=== PATIENT | male | born 1945 | race Caucasian/White ===

== ENCOUNTER 2018-04-18 09:38 | Inpatient (IN) | payer MEDICARE, MEDICAID ==
[2018-04-18 10:09] LABS: BASO # 0.1 10^3/uL (0.0-0.2); BASO % 0.6 % (0.0-1.0); EOS # 0.2 10^3/uL (0.0-0.50); EOS % 2.3 % (0.0-3.0); HEMATOCRIT 46.5 % (42.0-52.0); HEMOGLOBIN 15.6 g/dl (13.5-17.5); IMMATURE GRANULOCYTE % 0.3 % (0-3.0); LYMPH # 1.9 10^3/uL (1.5-4.5); LYMPH % 18.8 % (24.0-44.0); MEAN CORPUSCULAR HEMOGLOBIN 29.9 pg (27.0-33.0); MEAN CORPUSCULAR HGB CONC 33.5 g/dl (32.0-36.5); MEAN CORPUSCULAR VOLUME 89.1 fl (80.0-96.0); MONO % 10.1 % (0.0-5.0); NEUTROPHILS # 6.7 10^3/uL (1.8-7.7); NEUTROPHILS % 67.9 % (36.0-66.0); PLATELET COUNT, AUTOMATED 223 10^3/uL (150-450); RED BLOOD COUNT 5.22 10^6/uL (4.30-6.10); RED CELL DISTRIBUTION WIDTH 12.8 % (11.5-14.5); WHITE BLOOD COUNT 9.9 10^3/uL (4.0-10.0)
[2018-04-18 10:19] LABS: INR 0.97
[2018-04-18 10:37] LABS: ANION GAP 6 MEQ/L (8-16); BLOOD UREA NITROGEN 16 MG/DL (7-18); CALCIUM LEVEL 9.5 MG/DL (8.8-10.2); CARBON DIOXIDE LEVEL 28 MEQ/L (21-32); CHLORIDE LEVEL 104 MEQ/L (98-107); CPK CREATINE PHOSPHOKINASE 141 U/L (39-308); CREATININE FOR GFR 1.18 MG/DL (0.70-1.30); GLOMERULAR FILTRATION RATE > 60.0 (>42); GLUCOSE, FASTING 94 MG/DL (70-100); MB/CK RELATIVE INDEX 1.84 (< OR =4); POTASSIUM SERUM 3.5 MEQ/L (3.5-5.1); SODIUM LEVEL 138 MEQ/L (136-145); TROPONIN I < 0.02 NG/ML (< 0.10)
[2018-04-18 11:10] LABS: ALBUMIN 3.6 GM/DL (3.2-5.2); ALBUMIN/GLOBULIN RATIO 0.72 (1.00-1.93); ALKALINE PHOSPHATASE 95 U/L (45-117); ALT/SGPT 60 U/L (12-78); AST/SGOT 35 U/L (7-37); BILIRUBIN,DIRECT 0.1 MG/DL (0.0-0.2); BILIRUBIN,TOTAL 0.3 MG/DL (0.2-1.0); NT-PRO BNP 32 PG/ML (<125); TOTAL PROTEIN 8.6 GM/DL (6.4-8.2)
[2018-04-18 11:38] LABS: D-DIMER QUANT 2341.5 ng/ml (<500)
[2018-04-18] MEDS: NS 1,000 ML IV (12:00)
[2018-04-18] MEDS: IPRATROPIUM 0.5MG/ALBUTEROL 2.5MG INH SOL UD 3ML (DUONEB)(J7620) NEB (12:19)
[2018-04-18] MEDS: ALBUTEROL SULFATE 2.5 MG/0.5 ML INH NEB SOLN INH (12:20)
[2018-04-18 14:52] LABS: CPK CREATINE PHOSPHOKINASE 121 U/L (39-308); MB/CK RELATIVE INDEX 1.57 (< OR =4); TROPONIN I < 0.02 NG/ML (< 0.10)
[2018-04-18] MEDS ORDERED: ACETAMINOPHEN 650 MG SUPP PR (17:15)
[2018-04-18] MEDS: APIXABAN 5 MG TAB (ELIQUIS) PO (21:59)
[2018-04-18] MEDS: VITAMIN D 1,000 INTERNATIONAL UNITS TABLET PO (21:59)
[2018-04-18] MEDS: ASCORBIC ACID 500 MG TAB PO (21:59)
[2018-04-18] MEDS: LISINOPRIL 40 MG TAB PO (22:00)
[2018-04-18] MEDS: amLODIPine 5 MG TAB PO (22:00)
[2018-04-18] MEDS: ACETYLCYSTEINE 20% 4 ML VIAL (200MG/ML) PO (22:21)
[2018-04-18] MEDS: OYSTER SHELL CALCIUM 500 MG TAB PO (22:21)
[2018-04-19] MEDS ORDERED: SLF 3 ML SYR IV (03:15)
[2018-04-19] MEDS: SLF 3 ML SYR IV ×3 (06:00→20:57)
[2018-04-19 06:49] LABS: BASO # 0.1 10^3/uL (0.0-0.2); BASO % 0.4 % (0.0-1.0); EOS # 0.1 10^3/uL (0.0-0.50); EOS % 0.4 % (0.0-3.0); HEMATOCRIT 42.9 % (42.0-52.0); HEMOGLOBIN 14.4 g/dl (13.5-17.5); IMMATURE GRANULOCYTE % 0.4 % (0-3.0); LYMPH # 1.6 10^3/uL (1.5-4.5); LYMPH % 13.3 % (24.0-44.0); MEAN CORPUSCULAR HEMOGLOBIN 29.4 pg (27.0-33.0); MEAN CORPUSCULAR HGB CONC 33.6 g/dl (32.0-36.5); MEAN CORPUSCULAR VOLUME 87.7 fl (80.0-96.0); MONO # 1.5 10^3/uL (0.0-0.8); MONO % 12.5 % (0.0-5.0); PLATELET COUNT, AUTOMATED 220 10^3/uL (150-450); RED BLOOD COUNT 4.89 10^6/uL (4.30-6.10); RED CELL DISTRIBUTION WIDTH 13.1 % (11.5-14.5); WHITE BLOOD COUNT 12.3 10^3/uL (4.0-10.0)
[2018-04-19 07:04] LABS: ANION GAP 8 MEQ/L (8-16); BLOOD UREA NITROGEN 12 MG/DL (7-18); CALCIUM LEVEL 9.7 MG/DL (8.8-10.2); CARBON DIOXIDE LEVEL 26 MEQ/L (21-32); CHLORIDE LEVEL 104 MEQ/L (98-107); CREATININE FOR GFR 1.15 MG/DL (0.70-1.30); GLOMERULAR FILTRATION RATE > 60.0 (>42); GLUCOSE, FASTING 104 MG/DL (70-100); POTASSIUM SERUM 3.8 MEQ/L (3.5-5.1); SODIUM LEVEL 138 MEQ/L (136-145)
[2018-04-19] MEDS: APIXABAN 5 MG TAB (ELIQUIS) PO ×2 (08:07→20:57)
[2018-04-19] MEDS: VITAMIN D 1,000 INTERNATIONAL UNITS TABLET PO (20:53)
[2018-04-19] MEDS: ACETYLCYSTEINE 20% 4 ML VIAL (200MG/ML) PO (20:53)
[2018-04-19] MEDS: LISINOPRIL 40 MG TAB PO (20:54)
[2018-04-19] MEDS: amLODIPine 5 MG TAB PO (20:56)
[2018-04-19] MEDS: OYSTER SHELL CALCIUM 500 MG TAB PO (20:57)
[2018-04-19] MEDS: ASCORBIC ACID 500 MG TAB PO (20:57)
[2018-04-19] MEDS: LUMIGAN OU (21:00)
[2018-04-19] MEDS: SIMBRINZA OU (21:00)
[2018-04-20] MEDS: SLF 3 ML SYR IV ×3 (05:25→20:56)
[2018-04-20 06:31] LABS: BASO # 0.1 10^3/uL (0.0-0.2); BASO % 0.3 % (0.0-1.0); HEMOGLOBIN 14.2 g/dl (13.5-17.5); IMMATURE GRANULOCYTE % 0.5 % (0-3.0); LYMPH # 2.2 10^3/uL (1.5-4.5); LYMPH % 12.7 % (24.0-44.0); MEAN CORPUSCULAR HEMOGLOBIN 30.1 pg (27.0-33.0); MEAN CORPUSCULAR HGB CONC 33.8 g/dl (32.0-36.5); MEAN CORPUSCULAR VOLUME 89.2 fl (80.0-96.0); MONO % 14.4 % (0.0-5.0); NEUTROPHILS # 12.4 10^3/uL (1.8-7.7); NEUTROPHILS % 72.1 % (36.0-66.0); PLATELET COUNT, AUTOMATED 202 10^3/uL (150-450); RED BLOOD COUNT 4.71 10^6/uL (4.30-6.10); RED CELL DISTRIBUTION WIDTH 13.4 % (11.5-14.5); WHITE BLOOD COUNT 17.2 10^3/uL (4.0-10.0)
[2018-04-20 06:58] LABS: ANION GAP 8 MEQ/L (8-16); BLOOD UREA NITROGEN 25 MG/DL (7-18); CALCIUM LEVEL 9.4 MG/DL (8.8-10.2); CARBON DIOXIDE LEVEL 26 MEQ/L (21-32); CHLORIDE LEVEL 101 MEQ/L (98-107); CREATININE FOR GFR 1.92 MG/DL (0.70-1.30); GLOMERULAR FILTRATION RATE 36.9 (>42); GLUCOSE, FASTING 109 MG/DL (70-100); POTASSIUM SERUM 3.8 MEQ/L (3.5-5.1); SODIUM LEVEL 135 MEQ/L (136-145)
[2018-04-20 07:19] LABS: MONO # 2.5 10^3/uL (0.0-0.8); POSITIVE DIFF POS FLAG
[2018-04-20] MEDS: SIMBRINZA OU ×2 (09:22→20:56)
[2018-04-20] MEDS: APIXABAN 5 MG TAB (ELIQUIS) PO ×2 (09:22→20:35)
[2018-04-20] MEDS: ACETYLCYSTEINE 20% 4 ML VIAL (200MG/ML) PO (20:34)
[2018-04-20] MEDS: amLODIPine 10 MG TAB PO (20:34)
[2018-04-20] MEDS: OYSTER SHELL CALCIUM 500 MG TAB PO (20:35)
[2018-04-20] MEDS: VITAMIN D 1,000 INTERNATIONAL UNITS TABLET PO (20:35)
[2018-04-20] MEDS: ASCORBIC ACID 500 MG TAB PO (20:35)
[2018-04-20] MEDS: LUMIGAN OU (20:36)
[2018-04-21] MEDS: SLF 3 ML SYR IV ×3 (04:39→21:09)
[2018-04-21 05:39] LABS: BASO # 0.1 10^3/uL (0.0-0.2); BASO % 0.4 % (0.0-1.0); EOS % 0.1 % (0.0-3.0); HEMATOCRIT 41.2 % (42.0-52.0); HEMOGLOBIN 13.6 g/dl (13.5-17.5); IMMATURE GRANULOCYTE % 0.6 % (0-3.0); LYMPH # 2.5 10^3/uL (1.5-4.5); LYMPH % 19.4 % (24.0-44.0); MEAN CORPUSCULAR HEMOGLOBIN 29.8 pg (27.0-33.0); MEAN CORPUSCULAR VOLUME 90.4 fl (80.0-96.0); MONO # 1.6 10^3/uL (0.0-0.8); MONO % 12.4 % (0.0-5.0); NEUTROPHILS # 8.7 10^3/uL (1.8-7.7); NEUTROPHILS % 67.1 % (36.0-66.0); PLATELET COUNT, AUTOMATED 199 10^3/uL (150-450); RED BLOOD COUNT 4.56 10^6/uL (4.30-6.10); RED CELL DISTRIBUTION WIDTH 13.3 % (11.5-14.5); WHITE BLOOD COUNT 12.9 10^3/uL (4.0-10.0)
[2018-04-21 06:05] LABS: ANION GAP 7 MEQ/L (8-16); BLOOD UREA NITROGEN 45 MG/DL (7-18); CALCIUM LEVEL 9.5 MG/DL (8.8-10.2); CARBON DIOXIDE LEVEL 27 MEQ/L (21-32); CHLORIDE LEVEL 101 MEQ/L (98-107); CREATININE FOR GFR 2.32 MG/DL (0.70-1.30); GLOMERULAR FILTRATION RATE 29.7 (>42); GLUCOSE, FASTING 97 MG/DL (70-100); POTASSIUM SERUM 3.8 MEQ/L (3.5-5.1); SODIUM LEVEL 135 MEQ/L (136-145)
[2018-04-21] MEDS: NS 1,000 ML IV ×2 (09:21→18:59)
[2018-04-21] MEDS: SIMBRINZA OU ×2 (09:22→21:09)
[2018-04-21] MEDS: APIXABAN 5 MG TAB (ELIQUIS) PO ×2 (09:22→21:06)
[2018-04-21] MEDS: COLCHICINE 0.6 MG TAB PO (12:57)
[2018-04-21 14:15] LABS: ABG BASE EXCESS -0.8 (-2.0-2.0); ABG HCO3 23.1 MEQ/L (22.0-26.0); ABG O2 SATURATION 92.2 % (95.0-99.0); ABG PARTIAL PRESSURE CO2 35.9 mmHg (35.0-45.0); ABG PARTIAL PRESSURE O2 61.9 mmHg (75.0-100.0); ABG STANDARD HCO3 23.7 MEQ/L (22.0-26.0); ABG TOTAL CO2 24.2 MEQ/L (23.0-31.0); ABG pH (ARTERIAL) 7.426 UNITS (7.350-7.450)
[2018-04-21 14:17] LABS: HEMATOCRIT 39.6 % (42.0-52.0); HEMOGLOBIN 13.2 g/dl (13.5-17.5); MEAN CORPUSCULAR HEMOGLOBIN 30.1 pg (27.0-33.0); MEAN CORPUSCULAR HGB CONC 33.3 g/dl (32.0-36.5); MEAN CORPUSCULAR VOLUME 90.2 fl (80.0-96.0); PLATELET COUNT, AUTOMATED 186 10^3/uL (150-450); RED BLOOD COUNT 4.39 10^6/uL (4.30-6.10); RED CELL DISTRIBUTION WIDTH 13.2 % (11.5-14.5); WHITE BLOOD COUNT 9.7 10^3/uL (4.0-10.0)
[2018-04-21 14:51] LABS: ALBUMIN 2.7 GM/DL (3.2-5.2); ALBUMIN/GLOBULIN RATIO 0.66 (1.00-1.93); ALKALINE PHOSPHATASE 57 U/L (45-117); ALT/SGPT 31 U/L (12-78); ANION GAP 7 MEQ/L (8-16); AST/SGOT 29 U/L (7-37); BILIRUBIN,TOTAL 0.5 MG/DL (0.2-1.0); BLOOD UREA NITROGEN 46 MG/DL (7-18); CALCIUM LEVEL 8.6 MG/DL (8.8-10.2); CARBON DIOXIDE LEVEL 27 MEQ/L (21-32); CHLORIDE LEVEL 104 MEQ/L (98-107); CREATININE FOR GFR 2.17 MG/DL (0.70-1.30); GLOMERULAR FILTRATION RATE 32.1 (>42); GLUCOSE, FASTING 101 MG/DL (70-100); POTASSIUM SERUM 3.8 MEQ/L (3.5-5.1); SODIUM LEVEL 138 MEQ/L (136-145); TOTAL PROTEIN 6.8 GM/DL (6.4-8.2)
[2018-04-21 14:58] LABS: LACTIC ACID SEPSIS PROTOCOL 1.4 MMOL/L (0.4-2.0)
[2018-04-21 16:15] LABS: ANION GAP 7 MEQ/L (8-16); BLOOD UREA NITROGEN 45 MG/DL (7-18); CALCIUM LEVEL 8.8 MG/DL (8.8-10.2); CARBON DIOXIDE LEVEL 25 MEQ/L (21-32); CHLORIDE LEVEL 103 MEQ/L (98-107); CREATININE FOR GFR 1.97 MG/DL (0.70-1.30); GLOMERULAR FILTRATION RATE 35.9 (>42); GLUCOSE, FASTING 94 MG/DL (70-100); POTASSIUM SERUM 3.7 MEQ/L (3.5-5.1); SODIUM LEVEL 135 MEQ/L (136-145)
[2018-04-21 19:59] LABS: APPEARANCE, URINE CLEAR (CLEAR); BACTERIA, URINE AUTO NEGATIVE (NEGATIVE); BILIRUBIN, URINE AUTO NEGATIVE (NEGATIVE); BLOOD, URINE BLOOD NEGATIVE (NEGATIVE); COLOR, URINE YELLOW (YELLOW); GLUCOSE, URINE (UA) AUTO NEGATIVE (NEGATIVE); KETONE, URINE AUTO NEGATIVE (NEGATIVE); LEUKOCYTE ESTERASE, URINE AUTO NEGATIVE (NEGATIVE); MUCUS, URINE SMALL (NEGATIVE); NITRITE, URINE AUTO NEGATIVE (NEGATIVE); PROTEIN, URINE AUTO NEGATIVE (NEGATIVE); RBC, URINE AUTO 3 /HPF (0-3); SPECIFIC GRAVITY URINE AUTO 1.016 (1.002-1.035); SQUAMOUS EPITHELIAL CELL UR AU 0 /HPF (0-6); UROBILINOGEN, URINE AUTO 0.2 mg/dL (0.0-2.0); WBC, URINE AUTO 1 /HPF (0-3)
[2018-04-21 20:35] LABS: SODIUM,RANDOM URINE 19 MEQ/L
[2018-04-21] MEDS: ACETYLCYSTEINE 20% 4 ML VIAL (200MG/ML) PO (21:03)
[2018-04-21] MEDS: ASCORBIC ACID 500 MG TAB PO (21:05)
[2018-04-21] MEDS: OYSTER SHELL CALCIUM 500 MG TAB PO (21:05)
[2018-04-21] MEDS: VITAMIN D 1,000 INTERNATIONAL UNITS TABLET PO (21:05)
[2018-04-21] MEDS: TAMSULOSIN 0.4 MG CAP PO (21:06)
[2018-04-21] MEDS: amLODIPine 10 MG TAB PO (21:07)
[2018-04-21] MEDS: LUMIGAN OU (21:08)
[2018-04-22 04:54] LABS: BASO % 0.4 % (0.0-1.0); EOS # 0.1 10^3/uL (0.0-0.50); EOS % 1.3 % (0.0-3.0); HEMATOCRIT 41.4 % (42.0-52.0); HEMOGLOBIN 13.5 g/dl (13.5-17.5); IMMATURE GRANULOCYTE % 0.6 % (0-3.0); LYMPH # 2.2 10^3/uL (1.5-4.5); LYMPH % 24.9 % (24.0-44.0); MEAN CORPUSCULAR HEMOGLOBIN 29.6 pg (27.0-33.0); MEAN CORPUSCULAR HGB CONC 32.6 g/dl (32.0-36.5); MEAN CORPUSCULAR VOLUME 90.8 fl (80.0-96.0); MONO # 1.1 10^3/uL (0.0-0.8); MONO % 11.7 % (0.0-5.0); NEUTROPHILS # 5.5 10^3/uL (1.8-7.7); NEUTROPHILS % 61.1 % (36.0-66.0); PLATELET COUNT, AUTOMATED 213 10^3/uL (150-450); RED BLOOD COUNT 4.56 10^6/uL (4.30-6.10); RED CELL DISTRIBUTION WIDTH 13.2 % (11.5-14.5); WHITE BLOOD COUNT 8.9 10^3/uL (4.0-10.0)
[2018-04-22 05:17] LABS: ANION GAP 5 MEQ/L (8-16); BLOOD UREA NITROGEN 32 MG/DL (7-18); CALCIUM LEVEL 9.2 MG/DL (8.8-10.2); CARBON DIOXIDE LEVEL 27 MEQ/L (21-32); CHLORIDE LEVEL 108 MEQ/L (98-107); CREATININE FOR GFR 1.55 MG/DL (0.70-1.30); GLOMERULAR FILTRATION RATE 47.3 (>42); GLUCOSE, FASTING 99 MG/DL (70-100); POTASSIUM SERUM 3.8 MEQ/L (3.5-5.1); SODIUM LEVEL 140 MEQ/L (136-145)
[2018-04-22] MEDS: SLF 3 ML SYR IV ×3 (05:57→21:20)
[2018-04-22] MEDS: TAMSULOSIN 0.4 MG CAP PO (08:33)
[2018-04-22] MEDS: APIXABAN 5 MG TAB (ELIQUIS) PO ×2 (08:33→21:00)
[2018-04-22] MEDS: COLCHICINE 0.6 MG TAB PO (08:33)
[2018-04-22] MEDS: NS 1,000 ML IV ×2 (08:34→21:20)
[2018-04-22] MEDS: SIMBRINZA OU ×2 (11:16→21:07)
[2018-04-22] MEDS: LUMIGAN OU (20:58)
[2018-04-22] MEDS: ASCORBIC ACID 500 MG TAB PO (20:59)
[2018-04-22] MEDS: OYSTER SHELL CALCIUM 500 MG TAB PO (21:00)
[2018-04-22] MEDS: VITAMIN D 1,000 INTERNATIONAL UNITS TABLET PO (21:00)
[2018-04-22] MEDS: amLODIPine 10 MG TAB PO (21:01)
[2018-04-22] MEDS: ACETYLCYSTEINE 20% 4 ML VIAL (200MG/ML) PO (21:04)
[2018-04-23 05:07] LABS: BASO % 0.5 % (0.0-1.0); EOS # 0.1 10^3/uL (0.0-0.50); EOS % 1.7 % (0.0-3.0); HEMATOCRIT 38.4 % (42.0-52.0); HEMOGLOBIN 12.7 g/dl (13.5-17.5); IMMATURE GRANULOCYTE % 0.4 % (0-3.0); LYMPH # 1.7 10^3/uL (1.5-4.5); LYMPH % 22.9 % (24.0-44.0); MEAN CORPUSCULAR HEMOGLOBIN 29.8 pg (27.0-33.0); MEAN CORPUSCULAR HGB CONC 33.1 g/dl (32.0-36.5); MEAN CORPUSCULAR VOLUME 90.1 fl (80.0-96.0); MONO % 13.7 % (0.0-5.0); NEUTROPHILS # 4.6 10^3/uL (1.8-7.7); NEUTROPHILS % 60.8 % (36.0-66.0); PLATELET COUNT, AUTOMATED 215 10^3/uL (150-450); RED BLOOD COUNT 4.26 10^6/uL (4.30-6.10); RED CELL DISTRIBUTION WIDTH 13.1 % (11.5-14.5); WHITE BLOOD COUNT 7.5 10^3/uL (4.0-10.0)
[2018-04-23 05:32] LABS: ANION GAP 8 MEQ/L (8-16); BLOOD UREA NITROGEN 17 MG/DL (7-18); CALCIUM LEVEL 8.6 MG/DL (8.8-10.2); CARBON DIOXIDE LEVEL 25 MEQ/L (21-32); CHLORIDE LEVEL 108 MEQ/L (98-107); CREATININE FOR GFR 1.06 MG/DL (0.70-1.30); GLOMERULAR FILTRATION RATE > 60.0 (>42); GLUCOSE, FASTING 99 MG/DL (70-100); POTASSIUM SERUM 3.6 MEQ/L (3.5-5.1); SODIUM LEVEL 141 MEQ/L (136-145)
[2018-04-23] MEDS: SLF 3 ML SYR IV (05:37)
[2018-04-23] MEDS: TAMSULOSIN 0.4 MG CAP PO (09:21)
[2018-04-23] MEDS: APIXABAN 5 MG TAB (ELIQUIS) PO (09:21)
[2018-04-23] MEDS: SIMBRINZA OU (09:22)
[2018-04-23] MEDS ORDERED: PILL CRUSHER/CUTTER 1 EACH XX (09:30)
[2018-04-23] MEDS: COLCHICINE 0.6 MG TAB PO (11:14)
== END 2018-04-23 12:51 | disposition home or self-care (01) | DRG 176 ==
LOC: M ED 09:38 → M ED INP 18:52 → M PCU 21:29
DX: I26.99 Other pulmonary embolism without acute cor pulmonale (principal); N17.9 Acute kidney failure, unspecified; I30.9 Acute pericarditis, unspecified; J90 Pleural effusion, not elsewhere classified; J84.112 Idiopathic pulmonary fibrosis; I10 Essential (primary) hypertension; E66.9 Obesity, unspecified; R33.9 Retention of urine, unspecified; H40.9 Unspecified glaucoma; Z79.899 Other long term (current) drug therapy; Z91.041 Radiographic dye allergy status; Z86.718 Personal history of other venous thrombosis and embolism; Z68.33 Body mass index [BMI] 33.0-33.9, adult

== ENCOUNTER → 2018-07-12 | Outpatient (REF) | payer MEDICARE, MEDICAID ==
[~2018-07-12] MED LIST: AMLO10TA5 PO; AMLO5TAB6 PO; BIMA01SOL OU; CALC500T36 PO; COLC1TAB13 PO; ELIQ5TAB PO; FLOM0.4C39 PO; GLUCTAB6 PO; LISI40TA PO; NACCAP2 PO; SIMB1SUS OU; TUMS500C PO; VITA500T PO; VITAD1000T PO
[2018-07-12 17:21] LABS: FERRITIN 313 NG/ML (26-388); GAMMA GLUTAMYLTRANSPEPTIDASE 71 U/L (15-85)
== END ==
LOC: M LAB REF 16:33
PROVIDERS: ATTEND Family Medicine
DX: R74.8 Abnormal levels of other serum enzymes (principal); D64.9 Anemia, unspecified

== ENCOUNTER → 2018-09-13 | Outpatient (REF) | payer MEDICARE, MEDICAID ==
[2018-09-15 14:21] LABS: PSA % FREE 18.7 % (.); PSA FREE 0.97 ng/mL; PSA TOTAL 5.2 ng/mL (0.0-4.0)
== END ==
LOC: M LAB REF 16:39
PROVIDERS: ATTEND Family Medicine
DX: R97.20 Elevated prostate specific antigen [PSA] (principal)

== ENCOUNTER → 2019-01-03 | Outpatient (CLI) | payer MEDICARE, MEDICAID ==
[~2019-01-03] MED LIST changes: -CALC500T36 PO; +CALC500T61 PO; +NACCAP PO; -NACCAP2 PO
--- NOTE | 2019-01-06 00:11 | ECHO ---
DATE OF PROCEDURE: 01/03/2019 DATE OF : 1945 AGE: 73 REFERRING PROVIDER: Jeremy Laws MD PATIENT LOCATION: Outpatient REASON FOR THE ECHOCARDIOGRAM: Edema. 2D MEASUREMENTS: IVS: 1.2 cm LV: 4.0 cm LVPW: 1.3 cm LA: 4.3 cm Aorta: 3.5 cm IVC: 0.9 cm DOPPLER MEASUREMENTS: Peak velocity across the aortic valve: 1.3 m/s Peak velocity across the LVOT: 1.0 m/s Mitral E: 0.77, Mitral A: 0.91 with a ratio of 0.8 Maximum tricuspid valve velocity: 3.1 m/s 2D COMMENTS: 1. Normal left ventricular size, wall thickness, and normal global left ventricular systolic function. The estimated left ventricular systolic ejection fraction is 60-65% 2. Mildly enlarged left atrium. Normal right atrium and right ventricle. 3. The atrial septum appeared to be normal without evidence of defect or shunt. 4. Normal aortic root. 5. No pericardial effusion seen. 6. Mildly calcified aortic valve with normal leaflet excursion. Mildly calcified mitral annulus with normal anterior mitral valve leaflet motion. Normal tricuspid valve and pulmonic valve. The proximal pulmonary artery branches also appear to be normal. 7. The inferior vena cava was normal in size, central venous pressure is most likely normal. DOPPLER: It detects mild aortic regurgitation, mild mitral regurgitation, mild tricuspid regurgitation. The calculated pulmonary artery systolic pressure varies between 40 and 50 mmHg. Abnormal relaxation pattern was noted across the mitral valve leaflets as well as the mitral valve annulus consistent with features of grade 1 left ventricular diastolic dysfunction. IMPRESSION: 1. Normal global left ventricular systolic function. There are some features of left ventricular diastolic dysfunction manifested by abnormal relaxation. 2. Aortic valve sclerosis with mild aortic regurgitation but no aortic stenosis. 3. Mitral annulus calcification with mildly enlarged left atrium and mild mitral regurgitation. 4. Mild tricuspid regurgitation with probably moderate pulmonary hypertension.
== END ==
LOC: M CARPUL 07:13
PROVIDERS: ATTEND Internal Medicine Critical Care Medicine
DX: R60.0 Localized edema (principal); K80.20 Calculus of gallbladder without cholecystitis without obstruction; J84.112 Idiopathic pulmonary fibrosis

== ENCOUNTER → 2019-01-03 | Outpatient (CLI) | payer MEDICARE, MEDICAID ==
--- NOTE | 2019-01-03 08:34 | REP ---
CT of the chest without IV contrast: Comparison is 04/21/2018. There are also comparison views of the lower lung on the abdomen CT of 07/23/2010. There is extensive honeycombing throughout the lower lobes bilaterally and partially involving the right middle lobe and lingular segment of the left upper lobe, not significantly changed from the comparison studies. This is compatible with pulmonary fibrosis. The pericardial effusion identified 04/21/2018 has resolved. There are no acute infiltrates or pleural effusions. No lung masses or nodules. No mediastinal or axillary, enlarged lymph nodes are identified. In the absence of IV contrast the study is insensitive for hilar adenopathy. The right lobe of the thyroid is enlarged and contains multiple nodules, as previously. On the prior study. Hepato steatosis was identified. This is not as apparent on the study today. There are two small hypodensities in the dome of the liver measuring approximate 13 mm in each, unchanged, likely hepatic cysts, however cannot be further characterized by CT. There is a 6 ml gallbladder calculus, unchanged. The visualized areas of the pancreas, spleen, adrenals and renal upper poles are unremarkable. Impression: The previous pericardial effusion has resolved. There is no other significant interval change. Pulmonary fibrosis as described, unchanged. No acute infiltrate or pleural effusion. No lung nodules or masses. No adenopathy. Multinodular enlarged thyroid right lobe, unchanged. Gallbladder calculus. The previous hepato steatosis is not as apparent on the current study. There are two small nonspecific hypodensities in the dome of the liver, unchanged. Electronically Signed by Sj Hampton MD 01/03/2019 08:25 A
== END ==
LOC: M RAD 06:43
PROVIDERS: ATTEND Internal Medicine Critical Care Medicine
DX: K80.20 Calculus of gallbladder without cholecystitis without obstruction (principal); J84.112 Idiopathic pulmonary fibrosis

== ENCOUNTER → 2019-06-22 | Outpatient (REF) | payer MEDICARE, MEDICAID ==
[~2019-06-22] MED LIST changes: +CHOL100029 PO; -VITAD1000T PO
== END ==
LOC: M LAB REF 16:29
PROVIDERS: ATTEND Family Medicine
DX: M10.9 Gout, unspecified (principal)

== ENCOUNTER → 2020-02-09 | Outpatient (CLI) | payer MEDICARE, MEDICAID ==
[~2020-02-09] MED LIST changes: -AMLO10TA5 PO; +AMLO1TAB24 PO; +AMLO1TAB25 PO; -AMLO5TAB6 PO; +VITA-243 PO; -VITA500T PO
--- NOTE | 2020-02-15 14:21 | REP ---
COMPLETE ABDOMINAL ULTRASOUND REASON FOR EXAM: Abnormal liver enzymes and past history of renal calculi. FINDINGS: There is a small nonmobile echogenic focus in the neck of the gallbladder measuring 7.3 mm. This could be a gallbladder calculus wedged in the gallbladder neck or a gallbladder calculus adherent to the gallbladder wall. There is no gallbladder thickening or pericholecystic fluid. There is no intrahepatic or extrahepatic biliary duct dilatation. The common biliary duct measures 3.6 mm in diameter. The hepatic parenchyma is hypoechoic. This is compatible with hepatosteatosis. No hepatic masses or cysts are identified; however, the hepatic parenchyma is difficult to penetrate with the ultrasound acoustic beam because of the hyperechogenecity. The visualized areas of the pancreas are unremarkable. Portions of the pancreas are obscured by bowel gas. The spleen is normal size measuring 10.1 x 3.3 x 9.2 cm, homogeneous, and otherwise unremarkable. The right kidney measures 10.1 x 5.2 x 6.7 cm and the left kidney measures 9.6 x 5.0 x 5.6 cm. The kidneys are normal in size. The left kidney is in the low normal size range. No renal calculi are identified. There is no hydronephrosis. There are no solid or cystic renal masses. The abdominal aorta is obscured by bowel gas. The prostate is incidentally imaged and is enlarged measuring 7.2 x 5.3 x 5.3 cm and effaces the bladder base. IMPRESSION: There is a gallbladder calculus as described. There is no gallbladder wall thickening, pericholecystic fluid, or biliary duct dilatation. The hepatic parenchymal is hyperechoic compatible with hepatosteatosis. The liver is otherwise unremarkable. There are no renal calculi. There are no solid or cystic renal masses. There is no hydronephrosis. The prostate is enlarged. The prostate margin is irregular. MTDD
== END ==
LOC: M RAD 08:19
PROVIDERS: ATTEND Internal Medicine Gastroenterology
DX: R94.5 Abnormal results of liver function studies (principal)

== ENCOUNTER → 2020-02-19 | Outpatient (REF) | payer MEDICARE, MEDICAID ==
[2020-02-19 18:17] LABS: IRON (FE) 90 UG/DL (65-175); PERCENT SATURATION 23.7 % (19.7-50.0); TOTAL IRON BINDING CAPACITY 379 UG/DL (250-450)
[2020-02-19 18:38] LABS: HEPATITIS B SURFACE ANTIGEN NEGATIVE (NEGATIVE)
[2020-02-19 19:06] LABS: HEPATITIS C VIRUS ABY INDEX 0.3 INDEX (<0.8)
[2020-02-23 06:12] LABS: ANTI DOUBLE STRAND-DNA AB <1 IU/mL (0-9); ANTI-MITOCHONDRIAL ANTIBODY 26.2 Units (0.0-20.0); ANTI-SMOOTH MUSCLE ANTIBODY 14 Units (0-19); ANTINUCLEAR ANTIBODIES DIRECT Positive (Negative); HEPATITIS A IgG TOTAL Positive (Negative); HEPATITIS B CORE ANTIBODY IGG Negative (Negative); IGASUB2 570.3 mg/dL (73.2-301.2); IGASUB3 80.1 mg/dL (13.4-97.9); IgA SERUM (part of Subclasses) 693 mg/dL (61-437); LIVER-KIDNEY MICROSOMAL ABY <20.1 Units (0.0-20.0); RNP ANTIBODIES <0.2 AI (0.0-0.9); SJOGREN'S ANTI SS-A 7.5 AI (0.0-0.9); SJOGREN'S ANTI SS-B <0.2 AI (0.0-0.9); SMITH ANTIBODIES <0.2 AI (0.0-0.9); TISSUE TRANSGLUTAMINASE IgA <2 U/mL (0-3)
== END ==
LOC: M LAB REF 17:41
PROVIDERS: ATTEND Family Medicine
DX: R94.5 Abnormal results of liver function studies (principal); D50.9 Iron deficiency anemia, unspecified

== ENCOUNTER → 2020-03-26 | Outpatient (CLI) | payer MEDICARE ==
--- NOTE | 2020-03-28 16:01 | ECHO ---
DATE OF PROCEDURE: 03/26/2020 Age: 74 Gender: Male Height: 170 cm Weight: 100 kg REFERRING PHYSICIAN: Dr. Laws INDICATION: Dyspnea MEASUREMENTS: LA 4.5 IVS 0.7 LV 5.4 LVPW 0.8 Aorta 3.1 IVC 1.7 Mitral E wave velocity 79, A wave 30 E prime septal 3.4 A prime lateral 9.9 FINDINGS: The study is somewhat limited technical quality with difficult visualization. Underlying rhythm is sinus rhythm, but there is frequent ventricular ectopy in the form of ventricular bigeminy. Left ventricle is normal size and overall normal systolic function; I estimate ejection fraction (EF) around 60 to 65%. No distinct segmental wall motion abnormalities are appreciated based on available views. Right ventricle appears dilated, but normally contractile. Both atria appear enlarged. Aortic valve is mildly sclerotic, it has 3 cusps and preserved mobility. Mitral and tricuspid valves appear grossly normal. Pulmonic valve also appears normal. No pericardial effusion is noted. Inferior vena cava is of normal size and collapses with inspiration indicative of likely normal central venous pressure. The aortic root is normal. Aortic arch and abdominal aorta were poorly seen. Doppler interrogation reveals no aortic stenosis and mild aortic insufficiency. There is approximately mild to moderate mitral and tricuspid insufficiency. Calculated pulmonary artery pressure is in the high 40s corresponding to moderate pulmonary hypertension. Pulmonic valve also exhibits mild insufficiency. Evaluation of diastolic function is complicated by very frequent ventricular ectopy, but based on prevailing pattern most likely grade 2 diastolic dysfunction is present. CONCLUSIONS: 1. Study is of fair technical quality, underling sinus rhythm with frequent ventricular ectopy often in the form of ventricular bigeminy. 2. Preserved LV size and systolic function, likely grade 2 diastolic dysfunction. 3. Dilated right ventricle. 4. Mild to moderate mitral and tricuspid insufficiency. 5. Mild aortic insufficiency. 6. Likely normal central venous pressure. 7. Probably moderate pulmonary hypertension. MTDD
== END ==
LOC: M CARPUL 11:22
PROVIDERS: ATTEND Internal Medicine Critical Care Medicine
DX: R06.00 Dyspnea, unspecified (principal); J84.112 Idiopathic pulmonary fibrosis; I27.20 Pulmonary hypertension, unspecified; I08.1 Rheumatic disorders of both mitral and tricuspid valves

== ENCOUNTER → 2020-09-23 | Outpatient (CLI) | payer MEDICARE ==
[~2020-09-23] MED LIST changes: +COLC0.6T47 PO; -COLC1TAB13 PO; -LISI40TA PO; +LISI40TA4 PO
[2020-09-23 13:45] LABS: PLATELET COUNT, AUTOMATED 201 10^3/uL (150-450)
[2020-09-23 13:56] LABS: INR 1.23; PROTHROMBIN TIME 15.8 SECONDS (12.5-14.3)
[2020-09-23 13:57] LABS: PARTIAL THROMBOPLASTIN TIME 33.8 SECONDS (24.2-38.5)
[2020-09-23 14:13] LABS: ALBUMIN 3.8 GM/DL (3.2-5.2); BILIRUBIN,DIRECT 0.2 MG/DL (0.0-0.2); BILIRUBIN,TOTAL 0.4 MG/DL (0.2-1.0); TOTAL PROTEIN 8.1 GM/DL (6.4-8.2)
[2020-09-24 17:09] LABS: ANTI-MITOCHONDRIAL ANTIBODY <20.0 Units (0.0-20.0); ANTI-SMOOTH MUSCLE ANTIBODY 13 Units (0-19)
== END ==
LOC: M LAB 12:35
PROVIDERS: ATTEND Internal Medicine Gastroenterology
DX: R94.5 Abnormal results of liver function studies (principal)